=== PATIENT | female | born 1995 | race Caucasian/White ===

== ENCOUNTER → 2023-06-13 | Emergency (ER) | payer MEDICAID ==
[~2023-06-13] VITALS: Ht 160 cm; Wt 90.9 kg
[~2023-06-13] MED LIST: AMOX-117 PO
[2023-06-13 08:09] VITALS: BP 136/90; PULSE 78; TEMP 97.8; O2SAT 98
[2023-06-13 08:30] VITALS: RESP 18
--- NOTE | 2023-06-13 08:30 | NUR ---
I have reviewed and agree with all interventions, assessments performed and documented by [facility] Santamaria.
== END | disposition home or self-care (01) ==
LOC: ER 08:08
DX: J32.9 Chronic sinusitis, unspecified (principal)
CPT/HCPCS: 99283

== ENCOUNTER 2023-07-12 10:30 | Emergency (ER) | payer MEDICAID ==
[~2023-07-12] VITALS: Ht 160 cm; Wt 88.3 kg
[2023-07-12 10:35] VITALS: BP 160/102; PULSE 83; TEMP 98.6; O2SAT 95
[2023-07-12 10:38] VITALS: RESP 16
[2023-07-12] MEDS ORDERED: AMOX-580 PO (10:40)
== END 2023-07-12 11:22 | disposition home or self-care (01) ==
LOC: ER 10:31
DX: J32.9 Chronic sinusitis, unspecified (principal)
CPT/HCPCS: 99283

== ENCOUNTER 2023-08-06 09:51 | Emergency (ER) | payer MEDICAID ==
[~2023-08-06] VITALS: Ht 167.6 cm; Wt 81.8 kg
[2023-08-06 10:26] VITALS: O2SAT 98
[2023-08-06 10:39] LABS: BASOPHILS % (AUTO) 0.4 % (0-1); EOSINOPHILS % (AUTO) 0.8 % (0-6); HEMATOCRIT 41.4 % (35.0-45.0); HEMOGLOBIN 13.9 g/dl (12.0-16.0); LYMPHOCYTES # (AUTO) 1.4 X10'3 (1.1-4.8); LYMPHOCYTES % (AUTO) 22.8 % (21-51); MEAN CORPUSCULAR HEMOGLOBIN 29.4 PG (27.0-31.0); MEAN CORPUSCULAR HGB CONC 33.5 g/dL (33.0-36.5); MEAN CORPUSCULAR VOLUME 87.9 FL (78-98); MONOCYTES # (AUTO) 0.5 X10'3 (0-0.9); MONOCYTES % (AUTO) 8.8 % (2-12); NEUTROPHILS # (AUTO) 4.2 X10'3 (1.8-7.7); NEUTROPHILS % (AUTO) 67.2 % (42-75); PLATELET COUNT 237 X10'3 (140-440); RED BLOOD COUNT 4.71 X10'6 (4.20-5.60); RED CELL DISTRIBUTION WIDTH 13.2 % (11.5-14.5); WHITE BLOOD COUNT 6.2 X10'3 (4.5-11.0)
[2023-08-06 11:05] LABS: ALANINE AMINOTRANSFERASE 15 U/L (12-78); ALKALINE PHOSPHATASE 59 IU/L (46-116); ANION GAP 8 (8-16); ASPARTATE AMINO TRANSFERASE 22 U/L (10-37); BILIRUBIN,TOTAL 0.7 MG/DL (0.1-1.0); BLOOD UREA NITROGEN 12 MG/DL (7-18); BUN/CREATININE RATIO 15.6 (10.0-20.0); CALCIUM 9.3 MG/DL (8.5-10.1); CHLORIDE 100 MMOL/L (99-107); CREATININE 0.77 MG/DL (0.40-0.90); GLUCOSE 96 MG/DL (70-104); POTASSIUM 3.2 MMOL/L (3.5-5.1); SODIUM 136 MMOL/L (135-145); TOTAL CARBON DIOXIDE 28.3 MMOL/L (24-32); TOTAL PROTEIN 8.2 G/DL (6.4-8.2); eCRCL 105 ML/MIN; eGFR > 90 ML/MIN
[2023-08-06 11:27] LABS: PRO BRAIN NATRIURETIC PEPTIDE < 30 PG/ML (0-125)
[2023-08-06 15:42] VITALS: BP 111/70; PULSE 111; RESP 16; TEMP 97.9
== END 2023-08-06 16:19 | disposition home or self-care (01) ==
LOC: ER 09:52
DX: R07.9 Chest pain, unspecified (principal); Z79.899 Other long term (current) drug therapy
CPT/HCPCS: 36415; 71045; 80053; 83880; 84484; 85025; 93005; 99285

== ENCOUNTER 2023-09-21 11:07 | Emergency (ER) | payer MEDICAID ==
[~2023-09-21] VITALS: Ht 160 cm; Wt 86.8 kg
[2023-09-21] MEDS ORDERED: CEFD300C3 PO (12:00)
[2023-09-21 12:02] VITALS: BP 127/71; PULSE 91; TEMP 97.6; O2SAT 97
[2023-09-21 12:13] VITALS: RESP 18
== END 2023-09-21 12:18 | disposition home or self-care (01) ==
LOC: ER 11:08
DX: J40 Bronchitis, not specified as acute or chronic (principal)
CPT/HCPCS: 99283

== ENCOUNTER 2023-12-01 08:37 | Emergency (ER) | payer MEDICAID ==
[~2023-12-01] VITALS: Ht 160 cm; Wt 86.8 kg
[2023-12-01 08:42] VITALS: TEMP 98
[2023-12-01] MEDS ORDERED: AMOX-117 PO (09:24)
[2023-12-01 09:30] VITALS: BP 112/75; PULSE 79; RESP 16; O2SAT 97
== END 2023-12-01 09:31 | disposition home or self-care (01) ==
LOC: ER 08:37
DX: G43.909 Migraine, unspecified, not intractable, without status migrainosus (principal); J32.9 Chronic sinusitis, unspecified
CPT/HCPCS: 99283

== ENCOUNTER 2024-02-17 09:49 | Emergency (ER) | payer MEDICAID ==
[~2024-02-17] VITALS: Ht 162.6 cm; Wt 86.8 kg
[2024-02-17] MEDS ORDERED: METH1ADH15 TOP (10:46)
[2024-02-17 10:55] VITALS: BP 110/73; PULSE 67; RESP 16; TEMP 98.3; O2SAT 98
== END 2024-02-17 10:59 | disposition home or self-care (01) ==
LOC: ER 09:50
DX: M54.81 Occipital neuralgia (principal); R51.9 Headache, unspecified; M54.2 Cervicalgia
CPT/HCPCS: 99282

== ENCOUNTER 2024-02-19 12:26 | Outpatient (CLI) | payer MEDICAID ==
[~2024-02-19 12:26] MED LIST changes: -AMOX-117 PO; +METH1ADH15 TOP
== END 2024-02-19 23:59 | disposition home or self-care (01) ==
LOC: RAD 12:26
PROVIDERS: ATTEND Nurse Practitioner Family
DX: R51.9 Headache, unspecified (principal)
CPT/HCPCS: 70450

== ENCOUNTER 2024-04-20 16:25 | Emergency (ER) | payer MEDICAID ==
[~2024-04-20] VITALS: Ht 165.1 cm; Wt 88.1 kg
[2024-04-20 17:15] VITALS: BP 123/73; PULSE 114; RESP 18; O2SAT 98
[2024-04-20] MEDS ORDERED: SUMA1TAB12 PO (17:29)
[2024-04-20] MEDS ORDERED: TRAM50TA2 PO (17:29)
[2024-04-20 17:36] VITALS: TEMP 98.4
== END 2024-04-20 17:38 | disposition home or self-care (01) ==
LOC: ER 16:26
DX: G44.86 Cervicogenic headache (principal)
CPT/HCPCS: 99283

== ENCOUNTER 2024-06-01 09:30 | Emergency (ER) | payer MEDICAID ==
[~2024-06-01] VITALS: Ht 160 cm; Wt 8.2 kg
[~2024-06-01 09:30] MED LIST changes: +SUMA1TAB12 PO
[2024-06-01 09:53] VITALS: BP 112/74; PULSE 86; RESP 16; TEMP 97; O2SAT 97
[2024-06-01] MEDS ORDERED: AMOX500C2 PO (10:10)
== END 2024-06-01 10:21 | disposition home or self-care (01) ==
LOC: ER 09:31
DX: J03.80 Acute tonsillitis due to other specified organisms (principal)
CPT/HCPCS: 99283

== ENCOUNTER 2024-07-15 21:08 | Emergency (ER) | payer MEDICAID ==
[~2024-07-15] VITALS: Ht 160 cm; Wt 84.6 kg
[2024-07-15 22:27] LABS: BASOPHILS # (AUTO) 0.1 X10'3 (0-0.2); BASOPHILS % (AUTO) 0.6 % (0-1); EOSINOPHILS # (AUTO) 0.1 X10'3 (0-0.9); EOSINOPHILS % (AUTO) 1.1 % (0-6); HEMATOCRIT 36.7 % (35.0-45.0); HEMOGLOBIN 12.5 g/dl (12.0-16.0); LYMPHOCYTES # (AUTO) 3.7 X10'3 (1.1-4.8); LYMPHOCYTES % (AUTO) 39.5 % (21-51); MEAN CORPUSCULAR HEMOGLOBIN 30.1 PG (27.0-31.0); MEAN CORPUSCULAR HGB CONC 34.2 g/dL (33.0-36.5); MEAN PLATELET VOLUME 7.8 FL (7.4-10.4); MONOCYTES # (AUTO) 0.6 X10'3 (0-0.9); MONOCYTES % (AUTO) 6.1 % (2-12); NEUTROPHILS # (AUTO) 4.9 X10'3 (1.8-7.7); NEUTROPHILS % (AUTO) 52.7 % (42-75); PLATELET COUNT 277 X10'3 (140-440); RED BLOOD COUNT 4.17 X10'6 (4.20-5.60); RED CELL DISTRIBUTION WIDTH 13.8 % (11.5-14.5); WHITE BLOOD COUNT 9.3 X10'3 (4.5-11.0)
[2024-07-15 22:53] LABS: ALANINE AMINOTRANSFERASE 17 U/L (12-78); ALBUMIN 4.3 G/DL (3.4-5.0); ALBUMIN/GLOBULIN RATIO 1.2 (1.1-1.5); ALKALINE PHOSPHATASE 60 IU/L (46-116); ANION GAP 4 (8-16); ASPARTATE AMINO TRANSFERASE 16 U/L (10-37); BILIRUBIN,TOTAL 0.6 MG/DL (0.1-1.0); CALCIUM 8.6 MG/DL (8.5-10.1); CHLORIDE 103 MMOL/L (99-107); LIPASE 51 U/L (16-77); POTASSIUM 3.9 MMOL/L (3.5-5.1); SODIUM 137 MMOL/L (135-145); TOTAL PROTEIN 7.9 G/DL (6.4-8.2)
[2024-07-15 23:13] LABS: BLOOD UREA NITROGEN 15 MG/DL (7-18); CREATININE 0.88 MG/DL (0.40-0.90); GLUCOSE 95 MG/DL (70-104); eCRCL 80 ML/MIN; eGFR 78 ML/MIN
[2024-07-16 00:17] VITALS: BP 102/65; PULSE 72; TEMP 98.2; O2SAT 98
[2024-07-16 00:50] VITALS: RESP 16
[2024-07-16 02:30] LABS: URINE HCG NEGATIVE (NEG)
[2024-07-16 02:41] LABS: BILIRUBIN,URINE NEGATIVE (Neg); CLARITY,URINE SLIGHTLY CLOUDY (Clear); COLOR,URINE YELLOW (Yellow); GLUCOSE, URINE NEGATIVE (Neg); KETONES,URINE 15 mg/dl (Neg); LEUKOCYTE ESTERASE ,URINE NEGATIVE (Neg); NITRITES, URINE NEGATIVE (Neg); OCCULT BLOOD,URINE NEGATIVE (Neg); PROTEIN,URINE NEGATIVE (Neg); UROBILINOGEN,URINE 0.2 E.U/dL (0.2-1.0)
[2024-07-16 02:49] LABS: RBC,URINE NONE SEEN /HPF (0-2); SQUAMOUS EPITHELIAL CELL,UR MANY /LPF (FEW); UA COLLECTION TYPE CLN CATCH MIDSTREAM; WBC,URINE 0-4 /HPF (0-4)
[2024-07-16 02:50] LABS: BACTERIA,URINE 1+ /HPF (Neg)
== END 2024-07-16 03:06 | disposition home or self-care (01) ==
LOC: ER 21:09
DX: R10.9 Unspecified abdominal pain (principal); Z79.899 Other long term (current) drug therapy
CPT/HCPCS: 36415; 80053; 81001; 81025; 83690; 85025; 99283

== ENCOUNTER 2024-09-26 08:26 | Emergency (ER) | payer MEDICAID ==
[~2024-09-26] VITALS: Ht 160 cm; Wt 78.2 kg
[2024-09-26 08:34] VITALS: BP 124/66; PULSE 85; RESP 16; O2SAT 95
[2024-09-26 09:35] LABS: STREP A SCREEN NEGATIVE (Neg)
[2024-09-26] MEDS ORDERED: LIDO20SO16 PO (11:07)
[2024-09-26] MEDS ORDERED: PRED20TA PO (11:07)
[2024-09-26 11:37] VITALS: TEMP 97.9
== END 2024-09-26 11:38 | disposition home or self-care (01) ==
LOC: ER 08:27
DX: J02.9 Acute pharyngitis, unspecified (principal)
CPT/HCPCS: 87081; 87880; 99283